=== PATIENT | female | born 1985 ===

== ENCOUNTER 2020-03-18 12:30 | Inpatient (IN) | payer OTHER ==
[~2020-03-18] VITALS: Ht 170.2 cm; Wt 69.4 kg
[2020-03-31] MEDS ORDERED: PRENATAL TABLE1 EAC1 PO (15:20)
== END 2020-04-02 16:54 | disposition home or self-care (01) | DRG 807 ==
LOC: OB/GYN 03-31 14:26 → LDR 03-31 14:26 → OB/GYN 03-31 16:27
PROVIDERS: ADMIT Obstetrics & Gynecology; ATTEND Obstetrics & Gynecology
PROC: 10E0XZZ Delivery of Products of Conception, External Approach (ICD-10-PCS; principal; 2020-03-31)
PROC: 0HQ9XZZ Repair Perineum Skin, External Approach (ICD-10-PCS; 2020-03-31)
PROC: 4A1HXFZ Monitoring of Products of Conception, Cardiac Rhythm, External Approach (ICD-10-PCS; 2020-03-31)
DX: O70.0 First degree perineal laceration during delivery (principal); Z37.0 Single live birth; Z3A.38 38 weeks gestation of pregnancy; Z20.822 Contact with and (suspected) exposure to COVID-19